=== PATIENT | male | born 1955 | race African-American/Black ===

== ENCOUNTER 2018-02-08 04:45 | Emergency (ER) | payer MEDICAID, OTHER ==
[~2018-02-08] VITALS: Ht 180.3 cm; Wt 68.0 kg
[2018-02-08 05:48] VITALS: BP 129/72
== END 2018-02-08 07:18 | disposition home or self-care (01) ==
LOC: ER 04:45
DX: L30.9 Dermatitis, unspecified (principal); B35.3 Tinea pedis; I10 Essential (primary) hypertension; F17.200 Nicotine dependence, unspecified, uncomplicated
CPT/HCPCS: 99283

== ENCOUNTER 2022-11-01 18:36 | Emergency (ER) | payer MEDICAID ==
[~2022-11-01] VITALS: Ht 182.9 cm; Wt 72.7 kg
[2022-11-01 18:45] VITALS: BP 131/70
[2022-11-01 19:15] LABS: CLARITY URINE CLEAR (CLEAR); COLOR URINE YELLOW (YELLOW); KETONES URINE NEGATIVE (NEGATIVE); LEUKOCYTE ESTERASE URINE NEGATIVE (NEGATIVE); NITRITE URINE NEGATIVE (NEGATIVE); OCCULT BLOOD URINE NEGATIVE (NEGATIVE); PH URINE 5.5 (4.5-8.0); PROTEIN URINE NEGATIVE (NEGATIVE); SPECIFIC GRAVITY URINE 1.013 (1.005-1.030)
== END 2022-11-01 20:45 | disposition home or self-care (01) ==
LOC: ER 18:36
DX: Z00.00 Encounter for general adult medical examination without abnormal findings (principal)
CPT/HCPCS: 81003; 99283